=== PATIENT | male | born 1965 | race Caucasian/White ===

== ENCOUNTER → 2017-11-12 | Outpatient (CLI) | payer BC ==
--- NOTE | 2017-11-12 15:34 | US ---
EXAMINATION TYPE: US extremity nonvasc mass LT DATE OF EXAM: 11/12/2017 COMPARISON: Prior left lower extremity venous ultrasound May 07, 2012 CLINICAL HISTORY: R59.1 Generalized enlarged lymph nodes. Pt states palpable lump left medial thigh x 1 month In area of pt's palpable the left GSV is visualized and appears dilated IMPRESSION: As above, palpable corresponds to focal dilatation in the greater saphenous vein, some c olor flow or patency is noted. Complete compressibility is present occluding thrombus at this level.
== END | disposition home or self-care (01) ==
LOC: RADUSWWP 14:54
PROVIDERS: ATTEND Surgery
DX: I82.812 Embolism and thrombosis of superficial veins of left lower extremity (principal); I87.1 Compression of vein

== ENCOUNTER 2021-03-14 10:54 | Emergency (ER) | payer BC ==
[2021-03-14 11:02] LABS: Glucose,Whole Blood 122 mg/dL (75-99)
[2021-03-14] MEDS ORDERED: MORPHINE SULFATE 4 MG/ML SYRINGE IVP STA (11:17)
[2021-03-14] MEDS ORDERED: DIPH,PERTUS(ACELL)TETVAC-LF 0.5 ML VIAL IM ONE (11:20)
[2021-03-14] MEDS ORDERED: LIDOCAINE 1% INJ 10MG/ML (20 ML MDV) SQ ONE (11:49)
--- NOTE | 2021-03-14 11:52 | CT ---
EXAMINATION TYPE: CT brain wo con DATE OF EXAM: 03/14/2021 COMPARISON: None HISTORY: Frontal injury from ladder/scaffolding. +LOC. Pain CT DLP: 1460.4 mGycm Automated exposure control for dose reduction was used. FINDINGS: There appears to be a small soft tissue nodule left frontal bone subcutaneous tissues could represent a small soft tissue neoplasm or sebaceous cyst. Hematoma felt less likely. Correlate with physical e xam. The ventricular system is midline. There is no displacement. No acute hemorrhage or mass effect. Pleu ral-based calcifications are seen. IMPRESSION: NO ACUTE HEMORRHAGE OR MASS EFFECT. SUBCENTIMETER SOFT TISSUE SUBCUTANEOUS NODULE RIGHT FRONTAL REGION CORRELATE WITH CLINICAL EXAM..
--- NOTE | 2021-03-14 11:57 | CT ---
EXAMINATION TYPE: CT facial bones wo con DATE OF EXAM: 03/14/2021 COMPARISON: NONE HISTORY: Frontal injury from ladder/scaffolding. +LOC. CT DLP: 1456 mGycm. Automated Exposure Control for Dose Reduction was Utilized. TECHNIQUE: CT scan of the facial bones is performed without contrast, axial images are obtained, kj nal reformatted images are also reviewed. FINDINGS: No acute displaced nasal bone fracture. Zygomatic arches are intact bilaterally. The mandib le is intact. Temporomandibular joints are maintained bilaterally. The orbital floors and link are i ntact. The globes are intact bilaterally. Intraconal fat is preserved. The pterygoid plates are intac t. The visualized maxilla is intact. Paranasal sinuses are grossly clear. Small foci of air left submandibular gland in the anterior subma ndibular level. Small foci of air anterior right internal jugular vein presumed from IV insertion. IMPRESSION: No acute displaced facial bone fracture
[2021-03-14] MEDS ORDERED: CEPHALEXIN 500 MG CAP PO STA (12:40)
--- NOTE | 2021-03-14 12:42 | ED ---
Head Injury HPI - General Chief complaint: Head Injury Stated complaint: Head Injury Time Seen by Provider: 03/14/21 11:16 Source: patient, EMS, RN notes reviewed Mode of arrival: EMS Limitations: altered mental status - History of Present Illness Initial comments: Patient is a 55-year-old male that presents to the emergency department complaining of a forehead laceration after getting hit in the head with a pipe while at work. Patient notes that part of a support system fell hitting the head. He denied losing consciousness. His workers note that he didn't lose consciousness. Patient notes that he does not really remember the ambulance ride over. Patient is unsure of his tetanus vaccine. Patient was otherwise well-appearing stating that his pain was tolerable and does not need pain medication this time. He denied chest pain shortness of breath headache nausea vomiting diarrhea constipation fever fatigue chills. - Related Data Previous Rx's Medication Instructions Recorded Cephalexin [Keflex] 500 mg PO Q6HR #40 cap 03/14/21 Allergies/Adverse reactions: Allergies Allergy/AdvReac Type Severity Reaction Status Date / Time No Known Allergies Allergy Verified 03/14/21 11:11 Review of Systems ROS Statement: Those systems with pertinent positive or pertinent negative responses have been documented in the HPI. ROS Other: All systems not noted in ROS Statement are negative. Past Medical History Past Medical History: No Reported History History of Any Multi-Drug Resistant Organisms: None Reported Past Surgical History: No Surgical Hx Reported Past Psychological History: No Psychological Hx Reported Smoking Status: Never smoker Past Alcohol Use History: None Reported Past Drug Use History: None Reported General Exam Limitations: altered mental status General appearance: alert, in no apparent distress Head exam: Present: atraumatic (Large laceration to the left forehead.), normocephalic Eye exam: Present: normal appearance, PERRL, EOMI. Absent: scleral icterus, conjunctival injection, periorbital swelling ENT exam: Present: normal exam, mucous membranes moist Neck exam: Present: normal inspection. Absent: tenderness, meningismus, lymphadenopathy Respiratory exam: Present: normal lung sounds bilaterally. Absent: respiratory distress, wheezes, rales, rhonchi, stridor Cardiovascular Exam: Present: regular rate, normal rhythm, normal heart sounds. Absent: systolic murmur, diastolic murmur, rubs, gallop, clicks Extremities exam: Present: normal inspection, full ROM, normal capillary refill. Absent: tenderness, pedal edema, joint swelling, calf tenderness Neurological exam: Present: alert, oriented X3 Psychiatric exam: Present: normal affect, normal mood Skin exam: Present: warm, dry, intact, normal color. Absent: rash Course Vital Signs 03/14/21 10:58 Temperature 97.4 F L Pulse Rate 61 Respiratory 18 Rate Blood Pressure 123/84 O2 Sat by Pulse 99 Oximetry Procedures - Laceration Laceration #1 Consent Obtained: verbal consent Indication: laceration Site: face (Left forehead) Size (cm): 8 Description: irregular Depth: simple, single layer, involves muscle layer Anesthetic Used: lidocaine 1% Anesthesia Technique: local infiltration Amount (mls): 7 Pre-repair: wound explored, irrigated extensively Type of Sutures: nylon, vicryl (4-0) Size of Sutures: 4-0 Number of Sutures: 10 (3 internal, 7 external) Technique: simple, interrupted Patient Tolerated Procedure: well, no complications Medical Decision Making - Medical Decision Making 55-year-old male with a forehead laceration sustained at work. CT of the brain and facial bones ordered. Patient declined pain meds at this time. Antibiotics will be sent to pharmacy pain CT imaging negative for any acute process other than subcutaneous tissue injury. Case discussed with Dr. Glover, patient discharge home - Lab Data Lab Results 03/14/21 Range/Units 11:01 POC Glucose (mg/dL) 122 H (75-99) mg/dL POC Glu Java Programmer ID Denver Almodovar - EKG Data -: EKG Interpreted by Or EKG shows normal: sinus rhythm Rate: normal EKG Comments: Ventricular rate 58 bpm, TX interval 178 ms, QRS duration 98 ms, QTC 447 ms, PRT axes 51/33/56, sinus bradycardia, otherwise normal ECG. - Radiology Data Radiology results: report reviewed, image reviewed CT of the facial bones: No acute displaced bone fracture. CT of the brain: No acute hemorrhage or mass effect. Subcentimeter soft tissue subcutaneous nodule right frontal region correlate with clinical exam. Disposition Clinical Impression: Contusion of scalp, Laceration Disposition: HOME SELF-CARE Condition: Stable Instructions (If sedation given, give patient instructions): Laceration (ED), Care For Your Stitches (ED) Additional Instructions: Please return to the Emergency Department if symptoms worsen or any other concerns. Follow-up with primary care in 1-2 days. Please return in 7-10 days to have sutures removed. Tylenol and Motrin alternating every 3 hours as needed for pain control. Take antibiotics as prescribed. Is patient prescribed a controlled substance at d/c from ED?: No Referrals: Gene Loya DO [Primary Care Provider] - 1-2 days Time of Disposition: 12:42
[2021-03-14 13:16] VITALS: BP 137/75; PULSE 77; RESP 20; TEMP 98
== END 2021-03-14 13:16 | disposition home or self-care (01) ==
LOC: EC 10:54
DX: S01.01XA Laceration without foreign body of scalp, initial encounter (principal); Z23 Encounter for immunization; W22.8XXA Striking against or struck by other objects, initial encounter; Y99.0 Civilian activity done for income or pay
CPT/HCPCS: 36415; 93005; 70486; 70450; 90715; 99284; 90471; 12054; J2001

== ENCOUNTER 2021-12-22 08:16 | Day surgery (SDC) | payer BC ==
[2021-12-20 15:11] VITALS: BMI 25.7
[~2021-12-22 08:16] MED LIST: LACTATED RINGERS 1,000 ML IV SCH; LIDOCAINE 1% (10MG/ML) FOR IV START INTRADERMA PRN
[2021-12-22 08:54] VITALS: TEMP 96.8
--- NOTE | 2021-12-22 09:21 | P.GSHP ---
History of Present Illness H&P Date: 12/22/21 Chief Complaint: Screening colonoscopy Is a 56-year-old male who presents today for screening colonoscopy. Patient denies a significant GI complaints. Past Medical History Past Medical History: No Reported History Additional Past Medical History / Comment(s): Varicose veins. History of Any Multi-Drug Resistant Organisms: None Reported Past Surgical History: No Surgical Hx Reported Past Anesthesia/Blood Transfusion Reactions: Motion Sickness Additional Past Anesthesia/Blood Transfusion Reaction / Comment(s): Patient has never had anesthesia. Past Psychological History: No Psychological Hx Reported Smoking Status: Never smoker Past Alcohol Use History: None Reported Past Drug Use History: None Reported - Past Family History Mother Family Medical History: No Reported History Medications and Allergies Home Medications Medication Instructions Recorded Confirmed Type Multivitamins, Thera [Multivitamin 1 tab PO DAILY 12/20/21 12/22/21 History (formulary)] Allergies Allergy/AdvReac Type Severity Reaction Status Date / Time No Known Allergies Allergy Verified 12/22/21 08:37 Surgical - Exam Vital Signs Temp Pulse Resp BP Pulse Ox 96.8 F L 72 18 149/87 97 12/22/21 08:44 12/22/21 08:44 12/22/21 08:44 12/22/21 08:44 12/22/21 08:44 - General well developed, well nourished, no distress - Eyes PERRL - ENT normal pinna - Neck no masses - Respiratory normal expansion - Cardiovascular Rhythm: regular - Abdomen Abdomen: soft, non tender Assessment and Plan Assessment: We'll perform screening colonoscopy
[2021-12-22] MEDS ORDERED: PROPOFOL 10 MG/ML 20 ML VIAL IV ONE (09:23)
--- NOTE | 2021-12-22 09:41 | P.OP ---
Date of Procedure: 12/22/21 Preoperative Diagnosis: Screening colonoscopy Postoperative Diagnosis: Mild diverticulosis Procedure(s) Performed: Colonoscopy Anesthesia: MAC Surgeon: Chinedu Najera Pathology: none sent Condition: stable Disposition: PACU Description of Procedure: The patient's placed on the endoscopy table in the lateral position. He received IV sedation. Digital rectal exam was performed. This revealed no abnormalities. Flexible colonoscope was then placed patient anus and passed throughout the entire colon. The ileocecal valve was visually is. The cecum, ascending and transverse colon appeared normal. The descending colon appeared normal. In the sigmoid colon was a few scattered diverticula. The scope was brought back the rectum this was normal. Scope withdrawn for patient.
[2021-12-22 10:19] VITALS: BP 129/82; PULSE 65; RESP 16
== END 2021-12-22 10:21 | disposition home or self-care (01) ==
LOC: ORWHC2ENDO 08:16
PROVIDERS: ATTEND Surgery
DX: Z12.11 Encounter for screening for malignant neoplasm of colon (principal); K57.30 Diverticulosis of large intestine without perforation or abscess without bleeding; I83.90 Asymptomatic varicose veins of unspecified lower extremity; K21.9 Gastro-esophageal reflux disease without esophagitis
CPT/HCPCS: J2704; G0121; 45378